=== PATIENT | female | born 1965 | race Caucasian/White ===

== ENCOUNTER 2024-06-12 00:40 | Inpatient (IN) | payer BC ==
[2024-06-12] VITALS (65 sets, daily range): BP systolic 88–156; BP diastolic 54–86
[~2024-06-12] VITALS: Ht 172.7 cm; Wt 75.0 kg
[2024-06-12] MEDS ORDERED: propofoL 100 ML IV SCH (00:50)
[2024-06-12 01:02] LABS: Source, Urine Foley catheter
[2024-06-12 01:03] LABS: BASOPHILS ABSOLUTE AUTO 0.09 K/mm3 (0.00-0.23); BASOPHILS PERCENT AUTO 1 % (0-2); EOSINOPHILS ABSOLUTE AUTO 0.18 K/mm3 (0.00-0.68); EOSINOPHILS PERCENT AUTO 1 % (0-6); Hemoglobin 15.9 g/dL (11.5-16.0); IMMATURE GRAN ABSOLUTE AUTO 0.12 K/mm3 (0.00-0.10); IMMATURE GRAN PERCENT AUTO 1 % (0-1); LYMPHOCYTES ABSOLUTE AUTO 3.86 K/mm3 (0.84-5.20); LYMPHOCYTES PERCENT AUTO 29 % (21-46); MONOCYTES ABSOLUTE AUTO 0.96 K/mm3 (0.16-1.47); MONOCYTES PERCENT AUTO 7 % (4-13); Mean Corpuscular HGB 30.5 pg (26.0-34.0); Mean Corpuscular HGB Conc 32.4 g/dL (31.5-36.5); Mean Corpuscular Volume 94 fL (80-100); Mean Platelet Volume 11.9 fL (9.1-12.4); NEUTROPHILS ABSOLUTE AUTO 7.93 K/mm3 (1.96-9.15); NEUTROPHILS PERCENT AUTO 60 % (41-73); Platelet Count 232 K/mm3 (150-400); RDW Standard Deviation 44.8 fL (35.1-46.3); Red Blood Cell Count 5.21 M/mm3 (3.80-5.20); White Blood Cell Count 13.14 K/mm3 (4.00-11.30)
[2024-06-12 01:13] LABS: PO2 Arterial 284 mmHg (80-100); pH Blood Arterial 7.32 (7.35-7.45)
[2024-06-12 01:15] LABS: Appearance, Urine Hazy (Clear); Bilirubin, Urine Neg (Neg); Blood, Urine 3+ (Neg); Color, Urine Yellow (P-Yellow); Glucose Qualitative, Urine Neg (Neg); Ketones, Urine Neg (Neg); Leukocyte Esterase, Urine 1+ (Neg); Nitrite, Urine Pos (Neg); Protein, Urine 3+ (Neg); Urobilinogen, Urine NORM (Normal)
[2024-06-12 01:17] LABS: Bacteria Mod /hpf; Red Blood Cells, Urine 0-2 /hpf (0-2); Squamous Epithelial Cells Rare /hpf (Few); White Blood Cells, Urine 50-100 /hpf (0-5)
[2024-06-12] MEDS ORDERED: CefTRIAXone Sodium 2,000 MG in NS 100 ML IV ONE (01:25)
[2024-06-12 01:26] LABS: Alanine Aminotransfer (ALT/SGP 38 U/L (12-78); Albumin, Blood 3.6 g/dL (3.4-5.0); Alk Phos 97 U/L (50-136); Anion Gap 13 mmol/L (3-11); Aspartate Aminotrans (AST/SGOT 30 U/L (12-37); Bilirubin, Total 0.3 mg/dL (0.1-1.0); Blood Urea Nitrogen 29 mg/dL (8-24); Bun/Creatinine Ratio 34.2 (12.0-20.0); CO2, Blood 25 mmol/L (21-32); Chloride, Blood 109 mmol/L (98-108); Creatinine, Blood 0.85 mg/dL (0.40-1.00); Ethanol (Alcohol), Blood, Med <3 mg/dL; Globulin, Blood 3.7 g/dL (2.2-4.0); Glomerular Filtration Rate 53 (60-); Glucose, Blood 192 mg/dL (70-99); Potassium, Blood 3.6 mmol/L (3.5-5.5); Sodium, Blood 143 mmol/L (136-145); Total Protein, Blood 7.3 g/dL (6.4-8.2)
[2024-06-12 01:28] LABS: U Amphetamine Screen Not Detected; U Barbituate Screen Not Detected; U Benzodiazapine Screen Not Detected; U Buprenorphine Screen Not Detected; U Cannabinoids Screen Not Detected; U Cocaine Screen Not Detected; U Methadone Screen Not Detected; U Methamphetamine Screen Not Detected; U Opiates Screen Not Detected; U Oxycodone Screen Not Detected; U Phencyclidine Screen Not Detected
[2024-06-12 01:40] LABS: Influenza A, PCR NEGATIVE (NEGATIVE); Influenza B, PCR NEGATIVE (NEGATIVE); Resp Syncytial Virus, PCR NEGATIVE (NEGATIVE); SARS-Cov-2 (COVID-19) PCR, MMC NEGATIVE (NEGATIVE)
[2024-06-12] MEDS ORDERED: FentaNYL Citrate 50 MCG/ML 2 ML Injection ONE (01:51)
[2024-06-12] MEDS ORDERED: FentaNYL Citrate 50 MCG/ML 2 ML Injection IV ONE (02:00)
[2024-06-12] MEDS ORDERED: Midazolam HCl 1MG / ML 2ML Vial ONE (02:05)
[2024-06-12] MEDS ORDERED: Midazolam HCl 1MG / ML 2ML Vial IV PRN (02:10)
[2024-06-12] MEDS ORDERED: Acetaminophen 650 MG Supp PR PRN (02:10)
[2024-06-12] MEDS ORDERED: FentaNYL Citrate 50 MCG/ML 2 ML Injection IV PRN ×2 (02:10→10:40)
[2024-06-12] MEDS ORDERED: FLU VACC TS2024-25(6MOS UP)/PF 45 MCG/0.5 ML SYRINGE IM ONE (02:10)
[2024-06-12] MEDS ORDERED: Acetaminophen 325 MG TABLET PO PRN (02:10)
[2024-06-12] MEDS ORDERED: Ondansetron HCl 2 MG / ML 2ML Vial IV PRN (02:15)
[2024-06-12] MEDS ORDERED: Ipratropium/Albuterol SulF 2.5-0.5MG/3 ML Amp INH PRN (02:15)
[2024-06-12] MEDS ORDERED: propofoL 100 ML IV PRN (02:45)
[2024-06-12 02:50] LABS: BASOPHILS ABSOLUTE AUTO 0.08 K/mm3 (0.00-0.23); BASOPHILS PERCENT AUTO 1 % (0-2); EOSINOPHILS ABSOLUTE AUTO 0.06 K/mm3 (0.00-0.68); EOSINOPHILS PERCENT AUTO 0 % (0-6); Hematocrit 45.4 % (33.0-51.0); Hemoglobin 14.4 g/dL (11.5-16.0); IMMATURE GRAN ABSOLUTE AUTO 0.13 K/mm3 (0.00-0.10); IMMATURE GRAN PERCENT AUTO 1 % (0-1); LYMPHOCYTES ABSOLUTE AUTO 1.57 K/mm3 (0.84-5.20); LYMPHOCYTES PERCENT AUTO 11 % (21-46); MONOCYTES ABSOLUTE AUTO 0.98 K/mm3 (0.16-1.47); MONOCYTES PERCENT AUTO 7 % (4-13); Mean Corpuscular HGB 30.4 pg (26.0-34.0); Mean Corpuscular HGB Conc 31.7 g/dL (31.5-36.5); Mean Corpuscular Volume 96 fL (80-100); NEUTROPHILS ABSOLUTE AUTO 11.79 K/mm3 (1.96-9.15); NEUTROPHILS PERCENT AUTO 81 % (41-73); RDW Standard Deviation 46.7 fL (35.1-46.3); Red Blood Cell Count 4.74 M/mm3 (3.80-5.20); White Blood Cell Count 14.61 K/mm3 (4.00-11.30)
[2024-06-12 02:51] LABS: Albumin, Blood 3.2 g/dL (3.4-5.0); Albumin/Globulin Ratio 0.9 (0.8-1.8); Bilirubin, Total 0.2 mg/dL (0.1-1.0); Bun/Creatinine Ratio 37.5 (12.0-20.0); Calcium, Blood 8.4 mg/dL (8.5-10.1); Creatinine, Blood 0.75 mg/dL (0.40-1.00); Globulin, Blood 3.4 g/dL (2.2-4.0); Magnesium, Blood 1.9 mg/dL (1.6-2.4); Potassium, Blood 3.9 mmol/L (3.5-5.5); Total Protein, Blood 6.6 g/dL (6.4-8.2)
[2024-06-12 02:52] LABS: Mean Platelet Volume 12.3 fL (9.1-12.4); Platelet Count 169 K/mm3 (150-400)
[2024-06-12] MEDS ORDERED: Azithromycin 500 MG in NS 250 ML IV SCH (03:24)
[2024-06-12] MEDS ORDERED: Hydrogen Peroxide 1.5 % Solution MT SCH (04:00)
--- NOTE | 2024-06-12 04:36 | NUR ---
PT ADMITTED TO ICU FROM ER, REPIRATORY THERAPIST PRESENT. PT INTUBATED/SEDATED RASS +2 UPON ADMISSION. PT HR IN 70s, MAP >65, SPO2 >95%. PT IN NORMAL SINUS RHYTHM, LUNG SOUND CLEAR/DIMINISHED, BOTH IV PATENT, ESQUIVEL CATHETER IN PLACE. PLAN OF CARE CONTINUED.
[2024-06-12] MEDS ORDERED: Pantoprazole Sodium 40 MG Injection IV SCH (06:00)
[2024-06-12 06:15] LABS: Base Excess Venous 0.4 mmol/L; Bicarbonate Venous 24.3 mmol/L (24.0-30.0); pH Blood Venous 7.36 (7.34-7.37)
--- NOTE | 2024-06-12 06:24 | NUR ---
PROPOFOL TITRATED TO 35MCG, HAD TO GIVE VERSED DUE TO PT AGITATION, NO OTHER EVENTS TOOK PLACE.
[2024-06-12] MEDS ORDERED: Hydrocortisone Sod Succinate 100 MG Vial IV SCH (07:00)
--- NOTE | 2024-06-12 07:15 | NUR ---
ASSUMPTION OF CARE: ASSUMED CARE OF PATIENT. PATIENT RESTING IN BED AT THIS TIME. VENT SETTINGS AC/VC 16/350/5/35%. SPO2 >94%. RR 16-17. VOLUMES ARE IN THE 310S. HR IN THE 60S. BLOOD PRESSURES STABLE WITH MAPS >65. PROPOFOL GTT INFUSING AT 35 MCG/KG/MIN. OGT SET TO LOW INTERMITTANT SUCTION. GREEN/YELLOW OUTPUT. ESQUIVEL IN PLACE AND DRAINING FREELY. PATIENT OPENS HER EYES TO VERBAL STIMULI.
[2024-06-12] MEDS ORDERED: Aspirin 325 MG Tab PT ONE (07:40)
[2024-06-12] MEDS ORDERED: Aspirin 81 MG Chew PT ONE (07:50)
[2024-06-12] MEDS ORDERED: Cetylpyridinium Chloride 1 EA MISC MT SCH (08:00)
[2024-06-12] MEDS ORDERED: Enoxaparin 40 MG/0.4 ML SYR SC SCH (09:00)
[2024-06-12] MEDS ORDERED: Lactobacil 2-S.Thermo-Bifido 1 1 Cap PO SCH (09:00)
[2024-06-12] MEDS ORDERED: LORazepam 2 MG/ML 1ML Injection ONE (09:59)
[2024-06-12] MEDS ORDERED: LORazepam 2 MG/ML 1ML Injection IV PRN (10:05)
[2024-06-12] MEDS ORDERED: Ipratropium/Albuterol SulF 2.5-0.5MG/3 ML Amp INH SCH (10:40)
[2024-06-12] MEDS ORDERED: D5W-1/2NS 1,000 ML IV SCH (12:55)
[2024-06-12] MEDS ORDERED: Bisacodyl 10 MG Supp PR PRN (13:00)
[2024-06-12] MEDS ORDERED: Magnesium Hydroxide Conc 10 ML UDC PT PRN (13:00)
--- NOTE | 2024-06-12 19:00 | NUR ---
ASSUMPTION OF CARE THIS NURSE TOOK ASSUMPTION OF CARE. PT IN ROOM SEDATED AND INTUBATED WITH SOFT BL UPPER RESTRAINTS. PT HAD SEDATION VACATION AND WAS ABLE TO FOLLOW COMMANDS WITH ALL EXTREMETIES. PT THEN WAS REACHING IN DIRECTION OF TUBE, COUGHING BUT TOLERATING VENT AND OVERALL SHOWED DISCOMFORT, SEDATION RESUMED. LINES/DRAINS/AIRWAY CHECKED.
--- NOTE | 2024-06-12 19:17 | NUR ---
SHIFT SUMMARY: NEURO: WITH BREAK FROM PRNS AND LOWER SEDATION, PATIENT ABLE TO OPEN EYES IN RESPONSE TO VERBAL STIMULI, FOLLOWS DIRECTIONS SUCH SQUEEZING HANDS AND NODDING/SHAKING HEAD TO YES/NO QUESTIONS. ABLE TO MOVE ALL FOUR LIMBS INDEPENDENTLY. PATIENT DID NOT TOLERATE THE VENT WITHOUT PRNS AND LOWER SEDATION THIS AM. RESPIRATORY: NO CHANGES TO VENT SETTINGS. PATIENT REMAINED AC/VC 16/350/5/35% THROUGHOUT THE SHIFT. 7.0 ETT REMAINED AT 22.0 AT THE GUMS. SPO2 >94. PATIENT STARTED THE SHIFT WITH LUNG VOLUMES IN THE 310S. BY THE END OF THE SHIFT, LUNG VOLUMES IN THE 330S. CARDIAC: PATIENT REMAINED IN SINUS THROUGHOUT THE SHIFT. BLOOD PRESSURES STABLE WITH MAPS >65. HR IN THE 60S-70S. RADIAL AND PEDIS PULSES PALPABLE. GI/: OGT REMAINED TO LOW INTERMITTANT SUCTION. GREEN/YELLOW/BROWN/SONG OUPUT THROUGHOUT THE SHIFT. FAMILY REPORTED PATIENT HAS CONSTIPATION AT HOME. BOWEL CARE ORDERS RECEIVED AND ENTERED. ESQUIVEL IN PLAN AND DRAINING FREELY. LOW URINE OUTPUT NOTED. DISCUSSED WITH DR. MELARA. PATIENT IS RECEIVING D5 1/2NS AT 100ML/HR. PSYCHSOCIAL: PATIENT'S FAMILY VERIFIED THAT THE PATIENT DOES NOT CURRENTLY TAKE ANY MEDICATIONS AT HOME. SHE AND THE HAVE BEEN PRESCRIBED INHALERS IN THE PAST BUT WERE UNABLE TO AFFORD THEM. REPORTS THEY WOULD LIKE TO WORK ON QUITTING SMOKING. NOTIFIED CARE MANAGEMENT. INFORMATION PROVIDED ON [employer] AND TOBACCO CESSATION PROGRAMS. FAMILY IS SUPPORTIVE AND ENCOURAGING OF THE PATIENT.
[2024-06-12] MEDS ORDERED: CefTRIAXone Sodium 1,000 MG in NS 100 ML IV SCH (21:00)
[2024-06-12] MEDS ORDERED: CefTRIAXone Sodium 2,000 MG in NS 100 ML IV SCH (21:00)
[2024-06-13] VITALS (45 sets, daily range): BP systolic 117–189; BP diastolic 59–122
[2024-06-13 03:35] LABS: BASOPHILS ABSOLUTE AUTO 0.05 K/mm3 (0.00-0.23); BASOPHILS PERCENT AUTO 0 % (0-2); EOSINOPHILS ABSOLUTE AUTO 0.09 K/mm3 (0.00-0.68); EOSINOPHILS PERCENT AUTO 1 % (0-6); Hematocrit 39.4 % (33.0-51.0); Hemoglobin 12.6 g/dL (11.5-16.0); IMMATURE GRAN ABSOLUTE AUTO 0.09 K/mm3 (0.00-0.10); IMMATURE GRAN PERCENT AUTO 1 % (0-1); LYMPHOCYTES ABSOLUTE AUTO 2.71 K/mm3 (0.84-5.20); LYMPHOCYTES PERCENT AUTO 23 % (21-46); MONOCYTES PERCENT AUTO 8 % (4-13); Mean Corpuscular HGB 30.4 pg (26.0-34.0); Mean Corpuscular Volume 95 fL (80-100); Mean Platelet Volume 11.3 fL (9.1-12.4); NEUTROPHILS ABSOLUTE AUTO 8.07 K/mm3 (1.96-9.15); NEUTROPHILS PERCENT AUTO 67 % (41-73); Platelet Count 182 K/mm3 (150-400); RDW Coefficient Variation 13.5 % (11.7-14.2); RDW Standard Deviation 47.3 fL (35.1-46.3); Red Blood Cell Count 4.15 M/mm3 (3.80-5.20); White Blood Cell Count 12.01 K/mm3 (4.00-11.30)
[2024-06-13 03:52] LABS: Calcium, Blood 8.3 mg/dL (8.5-10.1); Creatinine, Blood 0.56 mg/dL (0.40-1.00); Magnesium, Blood 1.9 mg/dL (1.6-2.4); Phosphorus, Blood 2.9 mg/dL (2.5-4.9); Potassium, Blood 3.4 mmol/L (3.5-5.5)
[2024-06-13] MEDS ORDERED: Potassium Chloride 20 MEQ TabCR PT ONE (04:00)
--- NOTE | 2024-06-13 05:16 | NUR ---
SHIFT SUMMARY PT REMAINS INTUBATED AND SEDATED ON PROPOFOL. PT REMAINED AGGITATED WITH ATTEMPTS TO TITRATE DOWN ON PROPOFOL. PT FOLLOWS COMMANDS AND MOVES ALL EXTREMETIES. NO S/S OF PAIN. UOP INCREASED HOURLY AFTER ONE FLUSH TO LOOSEN SEDIMENT.
[2024-06-13] MEDS ORDERED: Docusate Sodium 100 MG UDC PT SCH ×2 (09:00)
--- NOTE | 2024-06-13 10:55 | NUR ---
PT HAS BEEN ALERT AND ANSWERING QUESTIONS WHILE NODDING. SHE IS MEDICATED THIS AM WITH FENTANYL AND ATIVAN FOR VENTILATOR TOLERANCE. SHE WAS SWITCHED TO SPONTANEOUS ON HER VENT SETTINGS AND TOLERATED WELL, SO ORDERED EXTUBATION. PT EXTUBATED AT 1018, ABLE TO SPEAK HER NAME AND PLACED ON NC @ 2L.
--- NOTE | 2024-06-13 18:29 | NUR ---
JEFFREY AWOKE FROM A LONG NAP, DINNER TRAY BROUGHT IN AND PT NOTED TO HAVE LARGE SWOLLEN ARM ON THE RIGHT UNDER HER BLOOD PRESSURE CUFF. IV STOPPED, BOTH IV'S IN RIGHT FOREARM AND RIGHT AC REMOVED. ARM TIGHT AND PT UNABLE TO BEND THE ELBOW. WARM COMPRESSES PLACED. PT ASKED TO NOT EAT ANYTHING. WATER BOTTLE GIVEN WITH ENCOURAGEMENT TO DRINK. ESQUIVEL REMAINS IN PLACE AT THIS TIME. DISCUSSION TO HAVE IT OUT. PT OPTED TO WAIT FOR A BIT. BREATHING REMAINS WNL, SATS >96%, HR 70'S, RATE 16. VOICE REMAINS QUIET AND WHISPER LEVEL.
[2024-06-14] VITALS (7 sets, daily range): BP systolic 147–170; BP diastolic 80–102
--- NOTE | 2024-06-14 01:07 | NUR ---
PT TRANSFERRED TO PCU VIA WHEELCHAIR, TELE IN PLACE. PT IS ALERT AND ORIENTED X4 W/NO COMPLAINTS OF PAIN AND NO S/S OF DISTRESS NOTED. RECEIVING RN AT BEDSIDE WHEN PT ARRIVES.
--- NOTE | 2024-06-14 04:19 | NUR ---
SHIFT SUMMARY PT TRANSFERRED FROM ICU AT APPROX 0100, PT A&O4 VSS AND ON RA. PT AMBULATED TO THE RR AND BACK TO BED. NO ACUTE CARDIAC EVENTS OVERNIGHT BUT O2 DROPPED TO 87% ON RA WHILE SLEEPING. 2LNC PLACED ON PT AND HAS BEEN TITRATED TO .5L WHILE ASLEEP. PT'S BED IN LOWEST POSITION AND CALL LIGHT WITHIN REACH
[2024-06-14 04:21] LABS: BASOPHILS ABSOLUTE AUTO 0.06 K/mm3 (0.00-0.23); BASOPHILS PERCENT AUTO 1 % (0-2); EOSINOPHILS ABSOLUTE AUTO 0.11 K/mm3 (0.00-0.68); EOSINOPHILS PERCENT AUTO 1 % (0-6); Hemoglobin 13.9 g/dL (11.5-16.0); IMMATURE GRAN ABSOLUTE AUTO 0.07 K/mm3 (0.00-0.10); IMMATURE GRAN PERCENT AUTO 1 % (0-1); LYMPHOCYTES ABSOLUTE AUTO 2.54 K/mm3 (0.84-5.20); LYMPHOCYTES PERCENT AUTO 20 % (21-46); MONOCYTES ABSOLUTE AUTO 1.25 K/mm3 (0.16-1.47); MONOCYTES PERCENT AUTO 10 % (4-13); Mean Corpuscular HGB 30.4 pg (26.0-34.0); Mean Corpuscular HGB Conc 32.3 g/dL (31.5-36.5); Mean Corpuscular Volume 94 fL (80-100); Mean Platelet Volume 11.5 fL (9.1-12.4); NEUTROPHILS ABSOLUTE AUTO 8.45 K/mm3 (1.96-9.15); NEUTROPHILS PERCENT AUTO 68 % (41-73); Platelet Count 165 K/mm3 (150-400); RDW Coefficient Variation 13.1 % (11.7-14.2); Red Blood Cell Count 4.57 M/mm3 (3.80-5.20); White Blood Cell Count 12.48 K/mm3 (4.00-11.30)
[2024-06-14 04:37] LABS: Bun/Creatinine Ratio 21.1 (12.0-20.0); Calcium, Blood 9.2 mg/dL (8.5-10.1); Creatinine, Blood 0.52 mg/dL (0.40-1.00); Magnesium, Blood 2.2 mg/dL (1.6-2.4); Phosphorus, Blood 2.7 mg/dL (2.5-4.9); Potassium, Blood 3.8 mmol/L (3.5-5.5)
[2024-06-14] MEDS ORDERED: HYDROcodone 5-APAP 325 TAB PO PRN (07:45)
[2024-06-14] MEDS ORDERED: DEXTROMETHORPHAN/BENZOCAINE 1 EACH LOZENGE MT PRN (11:00)
[2024-06-14] MEDS ORDERED: Polyethylene Glycol 3350 17 gm PO PRN (11:05)
[2024-06-14] MEDS ORDERED: Mometasone/Formoterol MDI 200/5 mcg 13 GM INH SCH (11:45)
--- NOTE | 2024-06-14 13:33 | NUR ---
ASSUMPTION OF CARE/TRANSFER SUMMARY PT ALERT AND ORIENTED X4. CALM. COOPERATIVE TO CARE. SKIN INTACT, BLISTERING ON RIGHT FOREARM. IV S/L LFA. HR IN THE 70'S, SINUS RHYTHM, SBP SLIGHLTY ELEVATED, MEDICATED PER EMAR, 02 >94% ON RA, DENIES SOB AT THIS TIME, L/S DIM/CLEAR T/O, +BS, DENIES N/V, UP TO BATHROOM INDEPENDENTLY. PT AMBULATED AROUND THE UNIT THIS AM WITH SPOUSE. SHE DENIED ANY QUESTIONS OR CONCERNS. PROVIDER TO BEDSIDE TO DISCUS PLAN OF CARE WITH PT. PT TO SWITCH TO MEDICAL STATUS, ORAL ABX AND ORAL STERIODS TO BE STARTED. PT AGREEABLE TO PLAN. PT TO TRANSFER TO SURGICAL FOR STAFFING REASONS. REPORT GIVEN TO [facility] SURGICAL FLOOR RN. PT TRANSFERED TO SURGICAL FLOOR WITH PCT.
--- NOTE | 2024-06-14 13:54 | NUR ---
REPORT RECEIVED FROM AUTOM[employer]BILE RACERANJALI SINGLETON. PT TO ROOM 210 AT ABOUT 1300. A/O, VSS. PT ORIENTED TO ROOM AND CALL LIGHT. LUNGS ARE CLEAR. CALL LIGHT IN REACH
--- NOTE | 2024-06-14 16:34 | NUR ---
SUMMARY: NO ACUTE CHANGE SINCE ARRIVING ON UNIT. VSS, A/O. INDEP IN ROOM. PT USING CALL LIGHT IN MAKE NEEDS KNOWN. NO SAFETY CONCERNS.
[2024-06-14] MEDS ORDERED: Ipratropium/Albuterol SulF 2.5-0.5MG/3 ML Amp INH SCH (19:00)
[2024-06-14] MEDS ORDERED: Docusate Sodium/Senna 1 Tab PO SCH (21:00)
[2024-06-14] MEDS ORDERED: Azithromycin 250 MG Tab PO SCH (21:00)
[2024-06-14] MEDS ORDERED: Doxycycline Hyclate 100 MG TAB PO SCH (21:00)
[2024-06-15 04:12] VITALS: BP 146/84
--- NOTE | 2024-06-15 04:52 | NUR ---
SHIFT SUMMARY NO ACUTE CHANGES THROUGHOUT SHIFT. A/OX4 WITH VSS. PT IND IN ROOM. VOIDING WITHOUT DIFFICUTLY. DENIES SOB OR DYSPNEA. MARGA PO INTAKE, DENIES N/V. APPEARS TO HAVE RESTED T/O SHIFT. PT CURRENTLY RESTING IN BED WITH EYES CLOSED, EVEN AND UNLABORED RESPIRATIONS, AND WITH CALL LIGHT IN REACH. PLAN FOR POTENTIAL D/C HOME TODAY. WILL CONTINUE TO CARE FOR PATIENT AND GIVE REPORT TO ONCOMING DAY RN.
[2024-06-15 07:15] VITALS: BP 151/84
[2024-06-15] MEDS ORDERED: Cholecalciferol 1000 Unit Tablet (=25MCG) PO SCH (09:00)
[2024-06-15] MEDS ORDERED: PredniSONE 20 MG Tab PO SCH (09:00)
[2024-06-15] MEDS ORDERED: DOXY100 PO (11:14)
[2024-06-15] MEDS ORDERED: ALBU90OI INH (11:17)
[2024-06-15] MEDS ORDERED: DULERA 100 MCG/13 GM INH (11:18)
[2024-06-15] MEDS ORDERED: IPRAT-ALBUT 0.5-3 ML (11:18)
[2024-06-15] MEDS ORDERED: Prednisone10 MG PO (11:19)
--- NOTE | 2024-06-15 13:10 | NUR ---
REPORT RECEIVED VERIFIED PT A/O NO C/O PAIN NO S/S OF DISTRESS AWAITING POSSIBLE DISCHARGE. PT ABLE TO MAKE NEEDS KNOWN, CALL LIGHT WITHIN REACH. DR FLORES IN TO SEE PT, DISCHARGE ORDERS GIVEN AND IMPLEMENTED IV DCED, INSTRUCTIONS GIVEN. MEDS FAXED TO [facility]
== END 2024-06-15 11:30 | disposition home or self-care (01) | DRG 871 ==
LOC: EDBD 00:40 → ER 00:40 → ICUE 02:07 → PCU 06-14 00:58 → SURS 06-14 12:58
PROVIDERS: Emergency Medicine; Internal Medicine Critical Care Medicine; ADMIT Student in an Organized Health Care Education/Training Program
PROC: 5A1935Z Respiratory Ventilation, Less than 24 Consecutive Hours (ICD-10-PCS; principal; 2024-06-12)
PROC: 0BH17EZ Insertion of Endotracheal Airway into Trachea, Via Natural or Artificial Opening (ICD-10-PCS; 2024-06-12)
PROC: 0T9B70Z Drainage of Bladder with Drainage Device, Via Natural or Artificial Opening (ICD-10-PCS; 2024-06-12)
PROC: 4A033R1 Measurement of Arterial Saturation, Peripheral, Percutaneous Approach (ICD-10-PCS; 2024-06-12)
PROC: 3E03329 Introduction of Other Anti-infective into Peripheral Vein, Percutaneous Approach (ICD-10-PCS; 2024-06-12)
DX: A41.9 Sepsis, unspecified organism (principal); I21.A1 Myocardial infarction type 2; J18.9 Pneumonia, unspecified organism; J96.01 Acute respiratory failure with hypoxia; J44.0 Chronic obstructive pulmonary disease with (acute) lower respiratory infection; J44.1 Chronic obstructive pulmonary disease with (acute) exacerbation; N39.0 Urinary tract infection, site not specified; R65.20 Severe sepsis without septic shock; B96.1 Klebsiella pneumoniae [K. pneumoniae] as the cause of diseases classified elsewhere; B96.89 Other specified bacterial agents as the cause of diseases classified elsewhere; F17.210 Nicotine dependence, cigarettes, uncomplicated; J43.9 Emphysema, unspecified; Z79.899 Other long term (current) drug therapy
CPT/HCPCS: 0241U; 36415; 36600; 51702; 70450; 71045; 71275; 80048; 80053; 80320; 81001; 82330; 82803; 82947; 83605; 83735; 83880; 84100; 84145; 84484; 85025; 87070; 87077; 87086; 87186; 87205; 93005; 93010; 93306; 94002; 94640; 94664; 94760; 94762; 99285-25; A9270; J0456; J0696; J1650; J1720; J2060; J2250; J2470; J2704; J3010; J7042; J7050; J7512; Q9967